=== PATIENT | male | born 1985 | race Caucasian/White ===

== ENCOUNTER 2018-01-02 11:24 | Emergency (ER) | payer BC ==
[~2018-01-02] VITALS: Ht 170.2 cm; Wt 129.3 kg
[~2018-01-02 11:24] MED LIST: IBUPROFEN 800800 MG PO
[2018-01-02 11:41] LABS: URINE BILIRUBIN NEGATIVE (Negative); URINE BLOOD TRACE (Negative); URINE CLARITY CLEAR; URINE COLOR YELLOW; URINE GLUCOSE-RANDOM NEGATIVE (Negative); URINE KETONES NEGATIVE (Negative); URINE LEUKOCYTES-REFLEX NEGATIVE (Negative); URINE NITRITE-REFLEX NEGATIVE (Negative); URINE PROTEIN NEGATIVE (Negative); URINE UROBILINOGEN 0.2 E.U./dl (0.2-1.0)
[2018-01-02 11:57] LABS: ABSOLUTE BASOPHILS 0.1 thou/uL (0.0-0.2); ABSOLUTE EOSINOPHILS 0.2 thou/uL (0.0-0.7); ABSOLUTE LYMPHOCYTES 2.4 thou/uL (0.8-5.3); ABSOLUTE MONOCYTES 0.7 thou/uL (0.0-1.2); BASOPHILS 0.6 %; EOSINOPHILS 2.3 %; HEMATOCRIT 50.5 % (42.0-52.0); HEMOGLOBIN 16.9 gm/dL (14.0-18.0); LYMPHOCYTES 25.6 %; MCH 29.3 pg (26.0-34.0); MCHC 33.5 g/dL (28.0-37.0); MCV 87.4 fL (80.0-100.0); MONOCYTES 7.4 %; MPV 8.4 fl. (7.2-11.1); NUCLEATED RBCS 0 /100WBC; PLATELET COUNT* 248 thou/uL (150-400); POLYS 64.1 %; RBC 5.78 mil/uL (4.50-6.00); RDW-CV 13.1 % (10.5-14.5); WBC 9.3 thou/uL (4.0-11.0)
[2018-01-02 12:10] LABS: CALCIUM 8.8 mg/dL (8.5-10.1); CREATININE 1.2 mg/dL (0.6-1.3); POTASSIUM 3.9 mmol/L (3.5-5.1)
[2018-01-02 12:14] LABS: ALBUMIN 3.9 g/dL (3.4-5.0); TOTAL BILIRUBIN 0.4 mg/dL (<0.1-1.0); TOTAL PROTEIN 7.7 g/dL (6.4-8.2)
[2018-01-02] MEDS ORDERED: FLOMAX0.4 MG PO (12:36)
[2018-01-02] MEDS ORDERED: IBUPROFEN 800800 M1 PO (12:36)
[2018-01-02] MEDS ORDERED: ZOFRAN ODT4 MG PO (12:36)
[2018-01-02] MEDS ORDERED: NORCO 5-325 TA1 EACH PO (12:36)
[2018-01-02 12:50] VITALS: BP 135/84
== END 2018-01-02 12:52 | disposition home or self-care (01) ==
LOC: M.ERS 11:24
PROVIDERS: Emergency Medicine Emergency Medical Services
DX: N20.0 Calculus of kidney (principal)

== ENCOUNTER 2018-12-26 01:42 | Emergency (ER) | payer BC ==
[~2018-12-26] VITALS: Ht 172.7 cm; Wt 127.0 kg
[~2018-12-26 01:42] MED LIST changes: +FLOMAX0.4 MG PO; +IBUPROFEN 800800 M1 PO; +NORCO 5-325 TA1 EACH PO; +ZOFRAN ODT4 MG PO
[2018-12-26 02:22] LABS: ABSOLUTE BASOPHILS 0.1 thou/uL (0.0-0.2); ABSOLUTE EOSINOPHILS 0.4 thou/uL (0.0-0.7); ABSOLUTE LYMPHOCYTES 3.9 thou/uL (0.8-5.3); ABSOLUTE MONOCYTES 0.9 thou/uL (0.0-1.2); ABSOLUTE NEUTROPHILS 4.1 thou/uL (1.6-8.1); BASOPHILS 0.8 %; EOSINOPHILS 3.9 %; HEMATOCRIT 47.3 % (42.0-52.0); HEMOGLOBIN 16.3 gm/dL (14.0-18.0); LYMPHOCYTES 41.6 %; MCH 29.5 pg (26.0-34.0); MCHC 34.5 g/dL (28.0-37.0); MCV 85.4 fL (80.0-100.0); MONOCYTES 9.6 %; MPV 7.9 fl. (7.2-11.1); NUCLEATED RBCS 0 /100WBC; PLATELET COUNT* 253 thou/uL (150-400); POLYS 44.1 %; RBC 5.54 mil/uL (4.50-6.00); WBC 9.4 thou/uL (4.0-11.0)
[2018-12-26 02:33] LABS: ALBUMIN 3.8 g/dL (3.4-5.0); CALCIUM 8.8 mg/dL (8.5-10.1); POTASSIUM 3.5 mmol/L (3.5-5.1); TOTAL BILIRUBIN 0.2 mg/dL (<0.1-1.0); TOTAL PROTEIN 7.5 g/dL (6.4-8.2)
[2018-12-26] MEDS ORDERED: PRILOSEC 20 MG20 MG PO (03:35)
[2018-12-26] MEDS ORDERED: CARAFATE 1 GM TA1 GM PO (03:35)
[2018-12-26 04:06] VITALS: BP 130/78
--- NOTE | 2018-12-27 10:03 | EKG ---
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1985 Requested By: Romy Gardner Order Number: [id number] MD: J Luis Gallagher Measurements Intervals [place] Rate: 77 P: 25 MN: 174 QRS: 0 QRSD: 92 T: 17 QT: 384 QTc: 435 Interpretive Statements Sinus rhythm Left atrial enlargement RSR' in V1 or V2, probably normal variant No previous ECG available for comparison Electronically Signed On 12-27-2018 10:02:52 CDT by J Luis Gallagher [email or web address] <ELECTRONICALLY SIGNED> By: J Luis Gallagher MD, [facility] 12/27/18 1002 0148 0148 J Luis Gallagher MD, FAC /EPI
== END 2018-12-26 04:06 | disposition home or self-care (01) ==
LOC: M.ERS 01:42
PROVIDERS: Emergency Medicine
DX: R07.89 Other chest pain (principal); R06.02 Shortness of breath

== ENCOUNTER 2020-10-17 13:40 | Emergency (ER) | payer OTHER ==
[~2020-10-17] VITALS: Ht 167.6 cm; Wt 140.6 kg
[~2020-10-17 13:40] MED LIST changes: +CARAFATE 1 GM TA1 GM PO; +PRILOSEC 20 MG20 MG PO
[2020-10-17 14:20] LABS: ABSOLUTE BASOPHILS 0.1 thou/uL (0.0-0.2); ABSOLUTE EOSINOPHILS 0.4 thou/uL (0.0-0.7); ABSOLUTE LYMPHOCYTES 2.8 thou/uL (0.8-5.3); ABSOLUTE MONOCYTES 0.8 thou/uL (0.0-1.2); ABSOLUTE NEUTROPHILS 4.5 thou/uL (1.6-8.1); BASOPHILS 0.9 %; EOSINOPHILS 4.1 %; HEMATOCRIT 47.9 % (42.0-52.0); HEMOGLOBIN 16.3 gm/dL (14.0-18.0); MCH 29.3 pg (26.0-34.0); MONOCYTES 9.6 %; MPV 7.7 fl. (7.2-11.1); NUCLEATED RBCS 0 /100WBC; PLATELET COUNT* 231 thou/uL (150-400); POLYS 52.4 %; RBC 5.57 mil/uL (4.50-6.00); WBC 8.6 thou/uL (4.0-11.0)
[2020-10-17 14:34] LABS: CALCIUM 8.2 mg/dL (8.5-10.1); POTASSIUM 3.8 mmol/L (3.5-5.1)
[2020-10-17 14:44] LABS: ALBUMIN 3.7 g/dL (3.4-5.0); MAGNESIUM 2.1 mg/dL (1.8-2.4); TOTAL BILIRUBIN 0.6 mg/dL (<0.1-1.0); TOTAL PROTEIN 7.3 g/dL (6.4-8.2)
--- NOTE | 2020-10-17 15:14 | EKG ---
[place] [address] ELECTROCARDIOGRAM REPORT Name: ROLANDO MAJOR Room: [facility]#: [id number] Admission: 10/17/20 Attend Phys: Discharge: Date of : 81 Date of Service: 10/17/20 1351 Report #: [id number] THIS REPORT FOR: //name// [facility] ED Test Date: 2020-10-17 Test Time: 13:51:38 Pat Name: ROLANDO MAJOR Department: Room: Gender: Guide [place]pine: : 1985 Requested By: Rober Corona Order Number: [id number] MD: Reji Joel Measurements Intervals [place] Rate: 69 P: -6 GA: 170 QRS: -12 QRSD: 89 T: 2 QT: 410 QTc: 440 Interpretive Statements Sinus rhythm Low voltage, precordial leads Compared to ECG 12/26/2018 01:48:12 Low QRS voltage now present no change Electronically Signed On 10-17-2020 15:14:13 ADMINISTRATION MANAGER by Reji Joel [email or web address] <ELECTRONICALLY SIGNED> By: Reji Joel MD, [facility] 10/17/20 1514 1351 1351 Reji Joel MD, [facility] /EPI
[2020-10-17] MEDS ORDERED: HYDROCODON-ACE1 EAC7 PO (16:47)
[2020-10-17 16:57] VITALS: BP 140/86
== END 2020-10-17 16:57 | disposition home or self-care (01) ==
LOC: M.ERS 13:40
PROVIDERS: Emergency Medicine Emergency Medical Services
DX: R07.89 Other chest pain (principal); Z79.1 Long term (current) use of non-steroidal anti-inflammatories (NSAID); Z79.899 Other long term (current) drug therapy

== ENCOUNTER 2021-07-10 18:58 | Emergency (ER) | payer OTHER ==
[~2021-07-10] VITALS: Ht 167.6 cm; Wt 140.6 kg
[~2021-07-10 18:58] MED LIST changes: +HYDROCODON-ACE1 EAC7 PO
[2021-07-10] MEDS ORDERED: LISINOPRIL20 MG PO (20:00)
[2021-07-10 21:20] LABS: URINE BILIRUBIN NEGATIVE (Negative); URINE BLOOD NEGATIVE (Negative); URINE CLARITY CLEAR; URINE COLOR YELLOW; URINE GLUCOSE-RANDOM NEGATIVE (Negative); URINE KETONES NEGATIVE (Negative); URINE LEUKOCYTES-REFLEX NEGATIVE (Negative); URINE NITRITE-REFLEX NEGATIVE (Negative); URINE PROTEIN NEGATIVE (Negative); URINE SPECIFIC GRAVITY >= 1.030 (1.005-1.030); URINE UROBILINOGEN 0.2 E.U./dl (0.2-1.0)
[2021-07-10 21:21] VITALS: BP 112/80
[2021-07-10 21:21] LABS: ABSOLUTE BASOPHILS 0.1 thou/uL (0.0-0.2); ABSOLUTE EOSINOPHILS 0.3 thou/uL (0.0-0.7); ABSOLUTE MONOCYTES 0.9 thou/uL (0.0-1.2); ABSOLUTE NEUTROPHILS 6.1 thou/uL (1.6-8.1); BASOPHILS 0.7 %; EOSINOPHILS 2.5 %; HEMATOCRIT 48.2 % (42.0-52.0); HEMOGLOBIN 16.2 gm/dL (14.0-18.0); LYMPHOCYTES 34.8 %; MCH 29.5 pg (26.0-34.0); MCHC 33.6 g/dL (28.0-37.0); MCV 87.8 fL (80.0-100.0); MONOCYTES 8.1 %; MPV 7.6 fl. (7.2-11.1); NUCLEATED RBCS 0 /100WBC; PLATELET COUNT* 281 thou/uL (150-400); POLYS 53.9 %; RBC 5.49 mil/uL (4.50-6.00); RDW-CV 12.7 % (10.5-14.5); WBC 11.3 thou/uL (4.0-11.0)
[2021-07-10 21:29] LABS: CALCIUM 8.7 mg/dL (8.5-10.1); CREATININE 1.1 mg/dL (0.6-1.3); POTASSIUM 4.1 mmol/L (3.5-5.1)
[2021-07-10] MEDS ORDERED: APAP W/CODEINE1 TA2 PO (21:31)
[2021-07-10] MEDS ORDERED: MEDROLDOSEPACK PO (21:31)
[2021-07-10 21:39] LABS: ALBUMIN 4.2 g/dL (3.4-5.0); TOTAL BILIRUBIN 0.6 mg/dL (<0.1-1.0)
== END 2021-07-10 21:46 | disposition home or self-care (01) ==
LOC: M.ERS 18:58
PROVIDERS: Physician Assistant
DX: M47.9 Spondylosis, unspecified (principal); M54.50 Low back pain, unspecified; I10 Essential (primary) hypertension; Z79.899 Other long term (current) drug therapy